=== PATIENT | female | born 1980 | race Two or more races ===

== ENCOUNTER 2016-08-31 18:12 | Emergency (ER) | payer OTHER ==
[~2016-08-31] VITALS: Ht 182.9 cm; Wt 90.7 kg
[2016-08-31] MEDS ORDERED: Ketorolac 60mg Inj IM ONE (19:15)
[2016-08-31 19:24] LABS: APPEARANCE,URINE CLEAR; KETONES,URINE NEGATIVE (NEGATIVE); LEUKOCYTE ESTERASE ,URINE 1+ (NEGATIVE); NITRITE,URINE NEGATIVE (NEGATIVE); PH,URINE 5 (4.5-8.0); PROTEIN,URINE NEGATIVE (NEGATIVE); UROBILINOGEN,URINE NORMAL MG/DL (0.0-1.0)
[2016-08-31 20:13] LABS: BACTERIA,URINE MODERATE /HPF
[2016-08-31 20:14] LABS: SQUAMOUS EPITHELIAL CELL,UR FEW /LPF (NONE/OCC); YEAST,URINE OCCASIONAL /HPF
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
[2016-08-31] MEDS ORDERED: DIFLUCAN100 MG ORAL (20:29)
[2016-08-31] MEDS ORDERED: NITROFURANTOIN100 M2 ORAL (20:29)
[2016-08-31] MEDS ORDERED: IBUPROFEN600 MG ORAL (20:30)
[2016-08-31 21:01] VITALS: BP 121/89
[2016-08-31 21:02] VITALS: BP 121/89
== END 2016-08-31 21:03 | disposition home or self-care (01) ==
LOC: EMR 19:55
DX: N30.00 Acute cystitis without hematuria (principal); N76.0 Acute vaginitis
CPT/HCPCS: 81003; 87086; 87210; 96372; 99284

== ENCOUNTER 2019-08-17 10:29 | Emergency (ER) | payer MEDICARE, OTHER ==
[~2019-08-17] VITALS: Ht 182.9 cm; Wt 90.7 kg
[~2019-08-17 10:29] MED LIST: DIFLUCAN100 MG ORAL; IBUPROFEN600 MG ORAL; NITROFURANTOIN100 M2 ORAL; NKM
[2019-08-17 10:50] VITALS: BP 134/88
--- NOTE | 2019-08-17 10:50 | NUR ---
ED Nurse Note: Patient walked in c/o sore throat with nasal congestion and productive cough x 3 days. Patient AxO x 4, no s/s of acute distress.
[2019-08-17] MEDS ORDERED: Lidocaine 1% MPF 10mg/ml 5ml INJ ONE (11:00)
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
[2019-08-17 11:12] LABS: APPEARANCE,URINE CLEAR; BILIRUBIN, URINE NEGATIVE (NEGATIVE); COLOR,URINE PALE YELLOW; GLUCOSE, URINE (UA) NEGATIVE (NEGATIVE); KETONES,URINE NEGATIVE (NEGATIVE); LEUKOCYTE ESTERASE ,URINE 1+ (NEGATIVE); NITRITE,URINE NEGATIVE (NEGATIVE); PH,URINE 5 (4.5-8.0); PROTEIN,URINE NEGATIVE (NEGATIVE); UROBILINOGEN,URINE NORMAL MG/DL (0.0-1.0)
[2019-08-17] MEDS ORDERED: DOXYCYCLINE MO100 MG ORAL (11:57)
[2019-08-17] MEDS ORDERED: TYLENOL325 MG ORAL (11:57)
[2019-08-17] MEDS ORDERED: NYSTATIN100000 UN1 ORAL (11:57)
[2019-08-17 12:35] VITALS: BP 128/87
--- NOTE | 2019-08-17 12:35 | NUR ---
ER DISCHARGE NOTE: Patient cleared for DC by Dr. Jovel, patient AxO x 4, no s/s of acute distress. Patient verbalized understanding of DC instructions. Patient ID band removed. Able to ambulate with steady gait, took all belongings.
== END 2019-08-17 12:35 | disposition home or self-care (01) ==
LOC: EMR 11:20
DX: J02.9 Acute pharyngitis, unspecified (principal); Z20.2 Contact with and (suspected) exposure to infections with a predominantly sexual mode of transmission
CPT/HCPCS: 81003; 81025; 87491; 87590; 96372; 99283; J0696

== ENCOUNTER 2020-04-30 19:45 | Emergency (ER) | payer MEDICARE, OTHER ==
[~2020-04-30] VITALS: Ht 180.3 cm; Wt 90.7 kg
[~2020-04-30 19:45] MED LIST changes: +DOXYCYCLINE MO100 MG ORAL; +NYSTATIN100000 UN1 ORAL; +TYLENOL325 MG ORAL
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
[2020-04-30 20:13] VITALS: BP 115/65
[2020-04-30] MEDS ORDERED: Azithromycin 250mg tab ORAL ONE (20:30)
[2020-04-30] MEDS ORDERED: Lidocaine 1% MPF 10mg/ml 5ml INJ ONE (20:30)
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
[2020-04-30 20:50] VITALS: BP 112/70
--- NOTE | 2020-04-30 20:50 | NUR ---
ER DISCHARGE NOTE: Patient is cleared to be discharged per ERMD, pt is aox4, on room air, with stable vital signs. pt was given dc instructions, pt was able to verbalize understanding, pt id band removed. pt is able to ambulate with steady gait. pt took all belongings. pt stable upon discharge.
== END 2020-04-30 20:50 | disposition home or self-care (01) ==
LOC: EMR 20:48
DX: J02.9 Acute pharyngitis, unspecified (principal)
CPT/HCPCS: 96372; 99283; J0696

== ENCOUNTER 2020-07-22 20:04 | Emergency (ER) | payer MEDICARE, OTHER ==
[~2020-07-22] VITALS: Ht 185.4 cm; Wt 90.3 kg
--- NOTE | 2020-07-22 20:18 | NUR ---
Patient came in the ED complaining of right sided lat rib pain radiating to right upper back, worse with movement and when taking deep breaths. Denies any trauma, denies SOB chest pain, denies cough.
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
[2020-07-22] MEDS ORDERED: Lidocaine 1% MPF 10mg/ml 5ml INJ ONE (20:45)
[2020-07-22] MEDS ORDERED: Ketorolac 30mg Inj IM ONE (20:45)
[2020-07-22] MEDS ORDERED: Azithromycin 250mg tab ORAL ONE (20:45)
[2020-07-22 21:07] VITALS: BP 119/76
[2020-07-22] MEDS ORDERED: LIDODERM700 M1 TOPIC (21:47)
[2020-07-22] MEDS ORDERED: ROBAXIN-500MG ORAL (21:47)
--- NOTE | 2020-07-22 22:11 | NUR ---
ER DISCHARGE NOTE: Patient is cleared to be discharged per ERMD, pt is aox4, on room air, with stable vital signs. pt was given dc and prescription instructions, pt was able to verbalize understanding, pt id band removed. pt is able to ambulate with steady gait. pt took all belongings.
--- NOTE | 2020-07-23 11:02 | Diagnostic Imaging Report ---
Indication: Chest pain Technique: XRAY Chest 1v Comparison: 06/26/2019 Findings: Heart size and mediastinal contours are within normal limits for AP technique. There is no focal airspace consolidation, pneumothorax or pleural effusion. Osseous structures demonstrate no acute abnormality. Impression: No radiographic evidence of acute cardiopulmonary disease.
== END 2020-07-22 22:30 | disposition home or self-care (01) ==
LOC: EMR 20:19
DX: R07.89 Other chest pain (principal); Z20.2 Contact with and (suspected) exposure to infections with a predominantly sexual mode of transmission; F17.200 Nicotine dependence, unspecified, uncomplicated
CPT/HCPCS: 71045; 96372; 99283; J0696; J1885

== ENCOUNTER 2020-07-26 23:56 | Emergency (ER) | payer MEDICARE, OTHER ==
[~2020-07-26] VITALS: Ht 182.9 cm; Wt 90.7 kg
[~2020-07-26 23:56] MED LIST changes: +LIDODERM700 M1 TOPIC; +ROBAXIN-500MG ORAL
[2020-07-27] MEDS ORDERED: Ketorolac 30mg Inj IV ONE (00:45)
--- NOTE | 2020-07-27 01:00 | NUR ---
ED Nurse Note: Patient came in ambulatory, c/o muscle pain and spasms and concerns about a possible blood clot in her lungs
--- NOTE | 2020-07-27 01:01 | NUR ---
ED Nurse Note: blood specimens sent to lab
[2020-07-27 01:10] LABS: BASOPHILS % (AUTO) 1.1 % (0.0-2.0); EOSINOPHILS % (AUTO) 0.7 % (0.0-3.0); HEMATOCRIT 39.6 % (37.0-47.0); HEMOGLOBIN 12.4 G/DL (12.0-16.0); LYMPHOCYTES % (AUTO) 32.3 % (20.0-45.0); MEAN CORPUSCULAR VOLUME 83 FL (80-99); MONOCYTES % (AUTO) 4.9 % (1.0-10.0); PLATELET COUNT 199 K/UL (150-450); RED BLOOD COUNT 4.78 M/UL (4.20-5.40); RED CELL DISTRIBUTION WIDTH 14.5 % (11.6-14.8); WHITE BLOOD COUNT 6.2 K/UL (4.8-10.8)
--- NOTE | 2020-07-27 01:39 | NUR ---
ED Nurse Note: Urine specimen sent to lab
[2020-07-27 01:48] LABS: APPEARANCE,URINE SLIGHTLY CLOUDY; BILIRUBIN, URINE NEGATIVE (NEGATIVE); COLOR,URINE YELLOW; GLUCOSE, URINE (UA) NEGATIVE (NEGATIVE); KETONES,URINE NEGATIVE (NEGATIVE); LEUKOCYTE ESTERASE ,URINE 2+ (NEGATIVE); NITRITE,URINE NEGATIVE (NEGATIVE); PH,URINE 5 (4.5-8.0); PROTEIN,URINE 1+ (NEGATIVE); UROBILINOGEN,URINE NORMAL MG/DL (0.0-1.0)
[2020-07-27 01:56] LABS: ANION GAP 9 mmol/L (5-15); BLOOD UREA NITROGEN 13 mg/dL (7-18); CARBON DIOXIDE 24 MMOL/L (21-32); CHLORIDE 107 MMOL/L (98-107); POTASSIUM 3.9 MMOL/L (3.5-5.1); SODIUM 140 MMOL/L (136-145)
[2020-07-27] MEDS ORDERED: MACROBID100 MG ORAL (02:16)
[2020-07-27] MEDS ORDERED: CYCLOBENZAPRINE10 MG ORAL (02:16)
--- NOTE | 2020-07-27 02:16 | Emergency Room Report ---
History of Present Illness General Chief Complaint: Pain Source: Patient Present Illness HPI Is a 39-year-old female with history of chronic back pain from pressure injury. She take Gambrills for. She presents with chief complaint of chest pain abdominal pain. She was here few days ago and had a chest x-ray was negative. She said is still hurting. Worse when she tried to get up and move. No fever chills but no nausea no vomiting. Pain is 9 out of 10. Denies any other complaint. No exertional component. This been ongoing for 4 days now. Allergies: Coded Allergies: No Known Allergies (Unverified , 08/31/16) COVID-19 Screening Contact w/high risk pt: No Experienced COVID-19 symptoms?: No COVID-19 Testing performed MEDIA RELATIONS COORDINATOR: No Patient History Past Medical History: see triage record, old chart reviewed Past Surgical History: none Pertinent Family History: none Social History: Denies: smoking Last Menstrual Period: 07/03/20 Now: No Immunizations: other Reviewed Nursing Documentation: PMH: Agreed; PSxH: Agreed Nursing Documentation-PMH Past Medical History: No History, Except For Hx Cardiac Problems: No - endometriosis Review of Systems Eye: Denies: eye pain, blurred vision ENT: Denies: ear pain, nose congestion, throat swelling Respiratory: Denies: cough, shortness of breath Cardiovascular: Reports: chest pain; Denies: palpitations Gastrointestinal: Denies: abdominal pain, diarrhea, nausea, vomiting Musculoskeletal: Denies: back pain, joint pain Skin: Denies: rash Neurological: Denies: headache, numbness Endocrine: Denies: increased thirst, increased urine Hematologic/Lymphatic: Denies: easy bruising All Other Systems: negative except mentioned in HPI Physical Exam Vital Signs Date Time Temp Pulse Resp B/P (MAP) Pulse Ox O2 Delivery O2 Flow Rate FiO2 07/27/20 00:05 98.2 80 18 122/68 (86) 97 Room Air Vitals normal Sp02 EP Interpretation: reviewed, normal General Appearance: well appearing, no apparent distress, alert Head: normocephalic, atraumatic Eyes: bilateral eye PERRL, bilateral eye EOMI ENT: hearing grossly normal, normal pharynx Neck: full range of motion, supple, no meningismus Respiratory: chest non-tender, lungs clear, normal breath sounds Cardiovascular #1: regular rate, rhythm, no murmur Gastrointestinal: normal bowel sounds, non tender, no mass, no organomegaly, no bruit, non-distended Musculoskeletal: back normal, normal range of motion, gait/station normal Psychiatric: mood/affect normal Medical Decision Making Diagnostic Impression: Primary Impression: Chest wall pain Additional Impressions: Cocaine abuse UTI (urinary tract infection) Qualified Codes: N30.00 - Acute cystitis without hematuria ER Course Presents with chest wall pain. She was very dramatic. She was in there talking the phone without any problem. When I walked in the room, she started screaming in pain. I see no evidence of ACS, PE, dissection to name a few. Initially, patient said that she is out of her pain medication. I told patient that she gets 60 tablets of Gambrills 10 mg every month. She just got it on July 18. She should have plenty. Will discharge home. Last Vital Signs Date Time Temp Pulse Resp B/P (MAP) Pulse Ox O2 Delivery O2 Flow Rate FiO2 07/27/20 00:05 98.2 80 18 122/68 (86) 97 Room Air Status: improved Disposition: HOME, SELF-CARE Condition: Stable Scripts Nitrofurantoin Monohyd/M-Cryst (Nitrofurantoin Woodruff-Mcr 100 mg) 100 Mg Capsule 100 MG ORAL Q12H, #14 CAP Prov: Jet Stevens MD 07/27/20 Cyclobenzaprine Hcl* (FLEXERIL*) 10 Mg Tablet 10 MG ORAL THREE TIMES A DAY, #30 TAB Prov: Jet Stevens MD 07/27/20 Referrals: NON PHYSICIAN (PCP) Additional Instructions: Stop using drugs. Follow-up with your doctor in 7 days. Return if symptoms worsen. Jet Stevens MD Jul 27, 2020 02:16
[2020-07-27 02:18] VITALS: BP 122/68
== END 2020-07-27 02:20 | disposition home or self-care (01) ==
LOC: EMR 07-27 00:18
DX: R07.89 Other chest pain (principal); F14.10 Cocaine abuse, uncomplicated; N30.00 Acute cystitis without hematuria
CPT/HCPCS: 36415; 80048; 80307; 81001; 81025; 85025; 85379; 87086; 96374; 99284; J1885

== ENCOUNTER 2020-08-20 20:48 | Emergency (ER) | payer MEDICARE, OTHER ==
[~2020-08-20] VITALS: Ht 180.3 cm; Wt 90.7 kg
[~2020-08-20 20:48] MED LIST changes: +CYCLOBENZAPRINE10 MG ORAL; +MACROBID100 MG ORAL
--- NOTE | 2020-08-20 21:22 | NUR ---
Pte came to ER ambulatory c/o burning urination since a few days ago pte refer she was diagnosed with UTI . Will continue to monitor.
[2020-08-20 21:24] VITALS: BP 129/79
[2020-08-20] MEDS ORDERED: Lidocaine 1% MPF 10mg/ml 5ml INJ ONE (22:00)
[2020-08-20] MEDS ORDERED: cefTRIAXone 500mg Inj IM ONE (22:00)
[2020-08-20] MEDS ORDERED: Azithromycin 250mg tab ORAL ONE (22:00)
[2020-08-20 22:30] VITALS: BP 128/77
--- NOTE | 2020-08-20 22:34 | Emergency Room Report ---
History of Present Illness General Chief Complaint: Female Urogenital Problems Source: Patient Present Illness HPI The patient has 2 complaints. Patient states that she was treated for a urinary tract infection previously and feels that the urinary tract infection has not resolved. She states she still has symptoms. She denies fever or chills. She denies nausea or vomiting. She denies abdominal pain. She does have cramping with urination. She also states that she had intercourse with a partner that she thinks may have a sexually transmitted infection. She is requesting treatment for gonorrhea, chlamydia and trichomonas. Apparently she has had this previously. She is also requesting another course of a different antibiotic for a urinary tract infection. She states that she will no longer be interacting or having intercourse with the person that she was with sexually a week ago that she is concerned may have a sexually transmitted infection. She has no other complaints. Allergies: Coded Allergies: No Known Allergies (Unverified , 08/31/16) COVID-19 Screening Contact w/high risk pt: No Experienced COVID-19 symptoms?: No COVID-19 Testing performed MUSCULOSKELETAL PHYSICIAN: No Patient History Past Medical History: none, see triage record Social History: Denies: smoking, alcohol use, drug use Last Menstrual Period: 08/02/2020 Now: No Reviewed Nursing Documentation: PMH: Agreed; PSxH: Agreed Nursing Documentation-PMH Hx Cardiac Problems: No - endometriosis Review of Systems All Other Systems: negative except mentioned in HPI Physical Exam Vital Signs Date Time Temp Pulse Resp B/P (MAP) Pulse Ox O2 Delivery O2 Flow Rate FiO2 08/20/20 21:08 98.4 84 20 127/74 (91) 97 Room Air Sp02 EP Interpretation: reviewed, normal General Appearance: no apparent distress, alert, GCS 15, non-toxic Head: normocephalic, atraumatic Eyes: bilateral eye normal inspection, bilateral eye PERRL ENT: hearing grossly normal, normal pharynx, no angioedema, normal voice Neck: normal inspection, full range of motion, supple/symm/no masses Respiratory: no respiratory distress, no retraction, no accessory muscle use, speaking full sentences Gastrointestinal: normal bowel sounds, non tender, soft, non-distended, no guarding, no rebound Rectal: deferred Genitourinary: deferred Musculoskeletal: back normal, normal range of motion, gait/station normal, non- tender Neurologic: alert, motor strength/tone normal, oriented x3, sensory intact, responsive, speech normal Psychiatric: judgement/insight normal, memory normal, mood/affect normal, no suicidal/homicidal ideation Skin: no rash, normal color Medical Decision Making Diagnostic Impression: Primary Impression: Dysuria Additional Impression: Sexually transmitted disease exposure ER Course The patient is requesting treatment for all sexually transmitted infections. I will treat her for gonorrhea, chlamydia and trichomonas. She was educated that she would need to see her primary care physician or FIELD LIABILITY GENERALIST physician to obtain testing for syphilis and HIV. I will change the patient's antibiotic to cover for urinary tract infection. I will also treat the patient with Flagyl at her request for coverage of trichomonas. Given that the patient will be receiving a large amount of antibiotics, I will go ahead and give the patient Diflucan for prophylaxis as the patient will likely develop a vaginal yeast infection. Overall, the patient's evaluation is benign. The patient is well-appearing and nontoxic. The patient was instructed to follow-up with her primary care physician for further testing and to return for any new or worsening symptoms. The patient indicated understanding intention to do so. Laboratory Tests Test 08/20/20 21:12 Urine Color Pending Urine Appearance Pending Urine pH Pending Urine Specific Boyd Pending Urine Protein Pending Urine Glucose (UA) Pending Urine Ketones Pending Urine Blood Pending Urine Nitrite Pending Urine Bilirubin Pending Urine Urobilinogen Pending Urine Leukocyte Esterase Pending Last Vital Signs Date Time Temp Pulse Resp B/P (MAP) Pulse Ox O2 Delivery O2 Flow Rate FiO2 08/20/20 21:24 97.6 75 17 129/79 98 Room Air Status: improved Disposition: HOME, SELF-CARE Condition: Improved Referrals: NON PHYSICIAN (PCP) Rylee Linn DO Aug 20, 2020 22:34
[2020-08-20 22:40] LABS: APPEARANCE,URINE SLIGHTLY CLOUDY; BILIRUBIN, URINE NEGATIVE (NEGATIVE); COLOR,URINE PALE YELLOW; GLUCOSE, URINE (UA) NEGATIVE (NEGATIVE); KETONES,URINE NEGATIVE (NEGATIVE); LEUKOCYTE ESTERASE ,URINE NEGATIVE (NEGATIVE); NITRITE,URINE NEGATIVE (NEGATIVE); PH,URINE 5 (4.5-8.0); PROTEIN,URINE NEGATIVE (NEGATIVE); UROBILINOGEN,URINE NORMAL MG/DL (0.0-1.0)
[2020-08-20] MEDS ORDERED: FLUCONAZOLE100 MG ORAL (22:41)
[2020-08-20] MEDS ORDERED: DOXYCYCLINE MO100 MG ORAL (22:41)
[2020-08-20] MEDS ORDERED: METRONIDAZOLE500 MG ORAL (22:41)
[2020-08-20] MEDS ORDERED: CIPROFLOXACIN500 M2 ORAL (22:41)
== END 2020-08-20 22:30 | disposition home or self-care (01) ==
LOC: EMR 21:41
DX: R30.0 Dysuria (principal); Z20.2 Contact with and (suspected) exposure to infections with a predominantly sexual mode of transmission
CPT/HCPCS: 81003; 96372; 99283; J0696